=== PATIENT | male | born 1970 | race African-American/Black ===

== ENCOUNTER 2025-05-16 21:04 | Emergency (ER) | payer BC ==
[2025-05-16 21:09] VITALS: BP 143/89; PULSE 87; RESP 20; TEMP 98.6; BMI 32.1
[2025-05-16] MEDS: ACETAMINOPHEN 325 MG TABLET (FP) PO ONE (21:59)
[2025-05-16 22:14] LABS: ABSOLUTE IMMATURE GRANULOCYTES 0.01 x10^3/uL (0.0-0.031); BASOPHILS # 0.03 x10^3/uL (0.01-0.08); EOSINOPHIL % 2.3 % (0.8-7.0); EOSINOPHILS # 0.11 x10^3/uL (0.04-0.54); MCHC 32.8 g/dl (32.3-36.5); MEAN CELL VOLUME 94.8 fl (79.0-92.2); MEAN PLT VOLUME 9.8 fl (9.4-12.4); MONOCYTE # 0.47 x10^3/uL (0.30-0.82); MONOCYTE % 9.9 % (5.3-12.2); RDW 13.1 % (12.2-16.1)
[2025-05-16 22:16] LABS: URINE APPEARANCE CLEAR; URINE BILIRUBIN NEGATIVE (NEGATIVE); URINE COLOR YELLOW; URINE GLUCOSE (UA) NEGATIVE (NEGATIVE); URINE KETONE NEGATIVE (NEGATIVE); URINE LEUK ESTERASE NEGATIVE (NEGATIVE); URINE NITRITE NEGATIVE (NEGATIVE); URINE PROTEIN NEGATIVE (NEGATIVE); URINE UROBILINOGEN 1.0 mg/dL (0.2-1.0)
[2025-05-16 22:32] LABS: GLUCOSE,RANDOM 108.0 mg/dL (74-106); TOT PROT 7.4 g/dl (6.4-8.2)
[2025-05-16 22:33] LABS: CO2 23.0 mmol/L (21-32)
[2025-05-16 22:35] LABS: ALK PHOS 52.0 U/L (40-150)
[2025-05-16 22:37] LABS: CREATININE 1.1 mg/dL (0.55-1.3); SGOT/AST 30.0 U/L (5-34); SGPT/ALT 21.0 U/L (0-55)
[2025-05-16 22:58] LABS: HCV DIAGNOSTIC IN-HOUSE W/RFLX NON-REACTIVE (NONREACTIVE); HIV INTERPRETATION NEGATIVE (NEGATIVE)
== END 2025-05-16 23:15 | disposition home or self-care (01) ==
LOC: JER 21:04
DX: M79.89 Other specified soft tissue disorders (principal); R60.0 Localized edema; M79.604 Pain in right leg
CPT/HCPCS: 36415; 80053; 81003; 85025; 86803; 87086; 87389; 93970-TC; 99284-25